=== PATIENT | male | born 1965 ===

== ENCOUNTER 2018-01-16 05:40 | Day surgery (SDC) | payer OTHER ==
[2018-01-16] MEDS ORDERED: DUI500 PO (14:19)
[2018-01-16] MEDS ORDERED: OXYC1TAB9 PO (14:19)
== END 2018-01-16 17:15 | disposition home or self-care (01) ==
LOC: CIR.AMB 05:40
DX: S46.812A Strain of other muscles, fascia and tendons at shoulder and upper arm level, left arm, initial encounter (principal); S46.212A Strain of muscle, fascia and tendon of other parts of biceps, left arm, initial encounter; M75.122 Complete rotator cuff tear or rupture of left shoulder, not specified as traumatic; M19.012 Primary osteoarthritis, left shoulder